=== PATIENT | female | born 1995 | race Caucasian/White ===

== ENCOUNTER 2017-07-22 16:04 | Emergency (ER) | payer SELFPAY ==
[2017-07-22 16:13] VITALS: BP 143/65
[2017-07-22 17:33] LABS: Bilirubin,Urine NEG (Negative); Blood,Urine NEG (Negative); Color,Urine Yellow (Yellow); Hyaline Casts,Urine 1 /LPF; Mucus,Urine FEW /HPF; Protein,Urine <15 mg/dL mg/dL (Negative); Urobilinogen,Urine < 2.0 mg/dL (<2.0)
[2017-07-22 17:36] LABS: HCG Qualitative,Urine Negative (Negative)
== END 2017-07-22 21:40 | disposition left against medical advice (07) ==
LOC: ED 16:04
DX: N39.0 Urinary tract infection, site not specified (principal); Z53.21 Procedure and treatment not carried out due to patient leaving prior to being seen by health care provider
CPT/HCPCS: 81001; 81025